=== PATIENT | male | born 1980 | race Caucasian/White ===

== ENCOUNTER → 2020-01-21 11:03 | Outpatient (BNVA) | payer MEDICAID, SELFPAY | PROVIDERS: Visit Provider Family Medicine | DX: R05 Cough (principal); M54.5 Low back pain; G89.29 Other chronic pain; I51.7 Cardiomegaly | CPT/HCPCS: 71046 ==

== ENCOUNTER 2020-01-29 13:08 | Outpatient (CLI) | payer MEDICAID, SELFPAY ==
--- NOTE | 2020-01-29 13:16 | XR_ITS ---
WS: [id number] LUMBAR SPINE TECHNIQUE: 7 views of the lumbar spine CLINICAL INFORMATION: M54.5 - Low back pain COMPARISON: None. FINDINGS: Five [id number] lumbar vertebral bodies. Slightly retrolisthesis L3 on L4 and L4 on L5. Retrolis thesis L4 on L5 measuring 3.4 mm. Disc space narrowing worse at L4-5. No instability on flexion-exten joni. Aortic calcification. Chronic anterior wedging at T11 and T12. Moderate facet arthropathy lower lumba r spine. Bony foraminal narrowing L5-S1. XR/XR lumbar spine 6V w f/e [id number] IMPRESSION: 1. Slight retrolisthesis L3 on L4 and L4 on L5. 2. Disc space narrowing worse L4-L5. 3. Moderate facet arthropathy L4-L5 and L5-S1. 4. Aortic calcification. 5. Chronic anterior wedging at T11 and T12. 6. No instability on flexion extension.
== END 2020-01-29 13:09 | disposition home or self-care (01) ==
LOC: RADWPI 13:15
PROVIDERS: PCP Family Medicine; Visit Provider Family Medicine
DX: G89.29 Other chronic pain (principal); M47.816 Spondylosis without myelopathy or radiculopathy, lumbar region; M47.817 Spondylosis without myelopathy or radiculopathy, lumbosacral region; I70.0 Atherosclerosis of aorta; S22.080A Wedge compression fracture of T11-T12 vertebra, initial encounter for closed fracture; X58.XXXA Exposure to other specified factors, initial encounter
CPT/HCPCS: 72114

== ENCOUNTER 2020-02-19 16:21 | Outpatient (CLI) | payer MEDICAID, SELFPAY ==
--- NOTE | 2020-02-19 16:45 | MR_ITS ---
WS: [id number] MRI LUMBAR SPINE NONCONTRAST HISTORY: M54.5 - Low back pain COMPARISON: None available. TECHNIQUE: Sagittal and axial multisequence imaging is submitted. L4 retrolisthesis by 3 mm. Mild disc space narrowing and desiccation from L3-4 to L5-S1. Very slight anterior wedging of T12. No marrow edema or acute fractures. Conus terminates normally at L1-2 disc level. L1-L2: Normal. L2-L3: Normal. L3-L4: Mild annular disc bulging with facet and ligamentum flavum hypertrophy. No central stenosis. D isc osteophyte contributing to moderate RIGHT and mild LEFT foraminal stenosis. L4-L5: Mild annular disc bulging with contact and flattening of the ventral thecal sac. Ligamentum fl avum hypertrophy and facet arthritis. Mild to moderate bilateral foraminal stenosis. Slightly greater on the RIGHT. L5-S1: Diffuse annular disc bulging. RIGHT paracentral annular fissure. Moderate facet joint arthriti s. Severe LEFT and mild RIGHT foraminal stenosis. Paravertebral soft tissues are normal. MR/MR lumbar spine wo con* [id number] IMPRESSION: 1. Degenerative disc disease and facet arthritis from L3-4 to L5-S1. 2. Severe LEFT and mild RIGHT foraminal stenosis at L5-S1. 3. Moderate RIGHT and mild LEFT foraminal stenosis at L3-4. 4. Mild to moderate bilateral foraminal stenosis, RIGHT greater than LEFT at L 4-5.
== END 2020-02-19 16:22 | disposition home or self-care (01) ==
LOC: RADSHAW 16:23
PROVIDERS: PCP Family Medicine; Visit Provider Family Medicine
DX: M48.061 Spinal stenosis, lumbar region without neurogenic claudication (principal); M51.36 Other intervertebral disc degeneration, lumbar region; M47.817 Spondylosis without myelopathy or radiculopathy, lumbosacral region; M47.816 Spondylosis without myelopathy or radiculopathy, lumbar region
CPT/HCPCS: 72148